=== PATIENT | female | born 1985 | race Hispanic/Latino ===

== ENCOUNTER 2019-03-14 00:27 | Emergency (ER) | payer SELFPAY ==
[2019-03-14] MEDS ORDERED: Metoclopramide HCl 10 MG/2 ML VIAL ONE (01:13)
[2019-03-14 01:49] LABS: #Eosinphils 0.2 thou/uL (0.0-0.7); #Lymphocytes 3.4 thou/uL (1.20-3.40); #Monocytes 0.7 thou/uL (0.11-0.59); #Neutrophils 6.7 thou/uL (1.40-6.50); %Basophils 0.4 % (0.0-1.0); %Eosinophils 1.9 % (0.0-10.0); %Lymphocytes 30.5 % (21.0-51.0); %Monocytes 6.1 % (0.0-10.0); Hemoglobin 14.4 g/dL (12.0-16.0); Mean Corpuscular HGB CONC 34.5 g/dL (32.0-36.0); Mean Corpuscular Hemoglobin 29.8 pg (27.0-31.0); Mean Corpuscular Volume 86.3 fL (78.0-98.0); Mean Platelet Volume 8.8 fL (7.4-10.4); Platelet Count 245 thou/uL (130-400); RBC Distribution Width 12.3 % (11.5-14.5); Red Blood Cell (RBC) Count 4.83 mill/uL (4.20-5.40)
[2019-03-14 02:04] LABS: BHCG - Serum Negative (NEGATIVE); Pregs Control Background? CLEAR/WHITE (CLR/WHITE); Pregs Control Bar Appear? YES (CONTROL BAR)
[2019-03-14 02:09] LABS: ALT (SGPT) 18 U/L (8-55); AST (SGOT) 13 U/L (5-34); Albumin 4.2 g/dL (3.5-5.0); Alkaline Phosphatase 84 U/L (40-150); Anion Gap 14 mmol/L (10-20); BUN (Urea Nitrogen) 14 mg/dL (7.0-18.7); Bilirubin, Total 0.5 mg/dL (0.2-1.2); Calc. Creatinine Clearance 0 mL/min (70-130); Calcium 9.4 mg/dL (7.8-10.44); Carbon Dioxide 24 mmol/L (22-29); Chloride 106 mmol/L (98-107); Estimated GFR-MDRD 75; Globulin 3.3 g/dL (2.4-3.5); Glucose 145 mg/dL (70-105); Potassium 3.7 mmol/L (3.5-5.1); Protein, Total 7.5 g/dL (6.0-8.3); Sodium 140 mmol/L (136-145)
--- NOTE | 2019-03-14 07:23 | CT ---
PRELIMINARY REPORT/[facility]/EMERGENCY AFTER HOURS PROCEDURE: EXAM: CT Head Without Contrast EXAM DATE/TIME: 03/14/2019 1:40 AM CLINICAL HISTORY: 33 years old, female; Pain; Patient HX: Er 7. Headache. "feels like my head is going to explode" PT reports headache with blurred vision bilaterally; HX of headaches but does not take medication for them TECHNIQUE: Imaging protocol: Axial computed tomography images of the head without contrast. COMPARISON: No relevant prior studies available. FINDINGS: Brain: No brain edema. No intracranial hemorrhage. Ventricles: Normal. No ventriculomegaly. Bones/joints: Unremarkable. No acute fracture. Sinuses: Incidental sinus mucosal thickening present. No fluid levels to indicate sinusitis. Mastoid air cells: Visualized mastoid air cells are well aerated. No mastoid effusion. Soft tissues: Unremarkable. IMPRESSION: No acute brain findings. Thank you for allowing us to participate in the care of your patient. Dictated and Authenticated by: Lucio Lazaro MD 03/14/2019 2:11 AM Central Time ([place] & [place]) Final report by Dr. Parra Emergency after-hours study CT BRAIN NONCONTRAST: DATE: 03/14/2019 HISTORY: Headache and blurred vision FINDINGS: There is no evidence of acute intra-axial or extra-axial hemorrhage. There is no midline shift or any other mass effect. There is no extra-axial fluid collection. There is no evidence of obstructive hydrocephalus. Calvarium is intact. Agree with preliminary report by [facility]. IMPRESSION: No acute intracranial findings. Transcribed Date/Time: 03/14/2019 7:37 AM
== END 2019-03-14 03:00 | disposition left against medical advice (07) ==
LOC: ERS 00:27
DX: R51 Headache (principal); I10 Essential (primary) hypertension; J20.9 Acute bronchitis, unspecified; E11.65 Type 2 diabetes mellitus with hyperglycemia; E11.9 Type 2 diabetes mellitus without complications; F17.210 Nicotine dependence, cigarettes, uncomplicated; Z79.4 Long term (current) use of insulin; Z79.899 Other long term (current) drug therapy
CPT/HCPCS: 36416; 70450; 80053; 84703; 85025; 96365; J2765

== ENCOUNTER 2019-05-03 13:19 | Emergency (ER) | payer SELFPAY | END 2019-05-03 14:12 | disposition home or self-care (01) | LOC: ERS 13:19 | DX: L03.114 Cellulitis of left upper limb (principal); F17.210 Nicotine dependence, cigarettes, uncomplicated; E11.9 Type 2 diabetes mellitus without complications; I10 Essential (primary) hypertension | CPT/HCPCS: 99283 ==